=== PATIENT | male | born 1960 | race Caucasian/White ===

== ENCOUNTER 2019-12-23 07:59 | Outpatient (CLI) | payer OTHER, SELFPAY ==
--- NOTE | 2019-12-23 07:15 | US_ITS ---
WS: [id number] ULTRASOUND RENAL TECHNIQUE: Ultrasound examination of both kidneys. CLINICAL INFORMATION: INCOMPLETE BLADDER EMPTYING COMPARISON: None. FINDINGS: RIGHT: Right kidney is normal in size and appearance. Echogenicity: Normal. Hydronephrosis: None. Perinephric fluid: None. Right kidney measures: 9.4 cm x 5.3 cm x 4.7 cm. LEFT: Left kidney is normal in size and appearance. Echogenicity: Normal. Hydronephrosis: None. Perinephric fluid: None. Left kidney measures: 10.0 cm x 4.8 cm x 5.0 cm. Normal visualized aorta.Pre bladder volume 1141 cc post bladder volume 1087 cc US/US renal BI* [id number] IMPRESSION: 1. Incomplete bladder emptying with less than 100 cc total emptying detail abo ve above 2. Both kidneys are normal in appearance. No hydronephrosis.
== END 2019-12-23 08:00 | disposition home or self-care (01) ==
LOC: RAD 08:03
PROVIDERS: Family Provider Family Medicine; PCP Family Medicine; Visit Provider Urology
DX: R33.9 Retention of urine, unspecified (principal)
CPT/HCPCS: 76770

== ENCOUNTER → 2020-08-24 15:00 | Outpatient (BNVA) | payer OTHER, SELFPAY | PROVIDERS: Family Provider Family Medicine; PCP Family Medicine; Visit Provider Urology | DX: R33.9 Retention of urine, unspecified (principal); N35.919 Unspecified urethral stricture, male, unspecified site | CPT/HCPCS: 81001 ==

== ENCOUNTER 2020-11-09 09:42 | Outpatient (CLI) | payer OTHER, SELFPAY ==
--- NOTE | 2020-11-09 09:30 | US_ITS ---
WS: [id number] RENAL ULTRASOUND HISTORY: Stricture COMPARISON: 12/23/2019 TECHNIQUE: 2-D and color Doppler imaging of the kidney submitted. Right kidney: 10.2 cm x 3.9 cm x 4.5 cm. Normal echogenicity with no hydronephrosis or mass. Left kidney: 11.2 cm x 4.9 cm x 4.4 cm. Normal echogenicity with no hydronephrosis or mass. Aorta: Mildly ectatic aorta. Urinary Bladder: Markedly distended urinary bladder. Urinary bladder measures 16.1 x 9.7 x 13.1 cm. P atient was unable to void. Prostate gland is irregular measuring 4.0 x 4.2 x 4.1 cm. Central prostate gland calcification. US/US renal BI* [id number] IMPRESSION: 1. Normal size kidneys with no hydronephrosis. 2. Markedly enlarged urinary bladder. Patient was unable to urinate. 3. Irregular prostate gland with central calcification.
== END 2020-11-09 09:43 | disposition home or self-care (01) ==
LOC: US 09:52
PROVIDERS: PCP Family Medicine; Visit Provider Urology
DX: N35.919 Unspecified urethral stricture, male, unspecified site (principal); Q64.70 Unspecified congenital malformation of bladder and urethra
CPT/HCPCS: 76770; 81003

== ENCOUNTER → 2021-05-10 11:36 | Outpatient (BNVA) | payer OTHER, SELFPAY | PROVIDERS: PCP Family Medicine; Visit Provider Urology | DX: R33.9 Retention of urine, unspecified (principal); R82.81 Pyuria; N35.919 Unspecified urethral stricture, male, unspecified site; Z87.440 Personal history of urinary (tract) infections | CPT/HCPCS: 81003; 87086 ==

== ENCOUNTER 2021-11-15 09:14 | Outpatient (CLI) | payer OTHER, SELFPAY ==
--- NOTE | 2021-11-15 09:30 | US_ITS ---
WS: [id number] RENAL ULTRASOUND URINARY BLADDER ULTRASOUND HISTORY: urinary retention COMPARISON: 11/09/2020 TECHNIQUE: 2-D and color Doppler imaging of the kidney submitted. Right kidney: 9.9 cm x 5.2 cm x 5.2 cm. Normal kidney. No hydronephrosis or mass. Left kidney: 11.1 cm x 5.3 cm x 4.7 cm. Normal echogenicity with no hydronephrosis or mass. Aorta: Nonvisualized due to bowel gas. Urinary Bladder: Markedly enlarged urinary bladder. Urinary bladder measures 12 x 12 x 15 cm. No fill ing defects within the bladder. Patient was unable to void. Prostate gland is also enlarged and heter ogeneous. Prostate measures 4.7 x 3.6 x 4.1 cm. US/US renal BI with PV bladder IMPRESSION: 1. No hydronephrosis or renal mass. 2. Markedly enlarged urinary bladder, patient was unable to void. Consider pawan rogenic bladder. Similar to the prior study.
== END 2021-11-15 09:15 | disposition home or self-care (01) ==
LOC: RAD 09:16
PROVIDERS: PCP Family Medicine; Visit Provider Urology
DX: R33.9 Retention of urine, unspecified (principal); N32.89 Other specified disorders of bladder
CPT/HCPCS: 76770; 76857

== ENCOUNTER 2022-03-27 07:55 | Day surgery (SDC) | payer OTHER, SELFPAY ==
[2022-03-27] VITALS (8 sets, daily range): BP systolic 97–168; BP diastolic 67–102; PULSE 76–100; RESP 16–20; TEMP 36.2–36.8; O2SAT 94–100; BMI 20.3
--- NOTE | 2022-03-27 | SCC_ITS ---
Procedure done: 1. Cystoscopy, Damon catheter placed 1.9 seconds of fluoroscopic guidance, for a cumulative dose of 0.28 mGy, was provided to Dr. Vo by the radiology department. C-arm images of the abdomen were saved for the patient's permanent record. MTDD
--- NOTE | 2022-03-27 08:16 | W.ED.MALEGU ---
HPI - Male Genitourinary General: Chief complaint: Urogenital-Male Stated complaint: Can not urinate Time Seen by Provider: 03/27/22 08:00 Source: patient Mode of arrival: ambulatory Limitations: no limitations History of Present Illness: 61-year-old male with a history of urethral stricture parents emergency room has been unable to void for the last day. He has a history of urethral stricture usually sees Gilda is on nitrofurantoin and tamsulosin. Does not take any new or different medications no [id number] medications he has not missed any of his prescription medications. He had previously been advised by Dr. Vo that if he was unable to void at all to present to the emergency room that likely need a catheter placed. He tells me is not previously had catheter placement. He denies any dysuria urgency or frequency denies any hematuria prior to being unable to void. No flank pain he has some abdominal discomfort suprapubic. Onset (ago): day(s) (1) Duration: constant Location: abdomen (Suprapubic) Severity: moderate Quality: aching Relieving factors: none Exacerbating factors: none Associated symptoms: Reports urinary retention; Deny discharge, dysuria, fevers/chills, hematuria, nausea, rash, swelling, urinary incontinence or vomiting Review of Systems Const: Denies: fever(s), chills, body aches, change in appetite, fatigue or malaise ENMT: Denies: throat pain, ear or mastoid pain, nasal discharge or nasal congestion Card: Denies: chest pain, edema, dyspnea on exertion or orthopnea Resp: Denies: dyspnea, productive cough or non-productive cough GI: Reports: abdominal pain; Denies: nausea or vomiting : Reports: difficulty urinating, difficulty starting urination and oliguria; Denies: flank pain, dysuria, urinary frequency, urinary urgency, urinary hesitancy, urinary dribbling, urinary incontinence or hematuria Skin/Breast: Denies: rash or pruritus PFSH ED PFSH: Medical History History of recurrent UTI (urinary tract infection) Incomplete bladder emptying Urethral stricture in male Family History Mother , AT AGE 85 HEART DISEASE CAD (coronary artery disease) Father , at age 93 COVID Social History Smoking and tobacco status: current every day smoker Alcohol intake: never Adopted: No Caregiver/support person: No Lives independently: No Household members: spouse Marital status: Current occupational status: employed History of recent travel: No Physical Exam Const: COMMON NORMALS: no acute distress GENERAL APPEARANCE: cooperative and comfortable ORIENTATION/CONSCIOUSNESS: Yes awake, Yes oriented to person, Yes oriented to place and Yes oriented to time HENMT: COMMON NORMALS: normocephalic, atraumatic and hearing grossly normal bilaterally HEAD & SCALP: normocephalic and atraumatic Neck/C-Spine: COMMON NORMALS: no JVD Resp: COMMON NORMALS: normal respiratory effort, No retractions, No use of accessory muscles and clear to auscultation bilaterally AUSCULTATION: clear to auscultation bilaterally Cardio: COMMON NORMALS: no JVD, regular rate, regular rhythm and No murmurs present (Cardio) RATE: regular rate RHYTHM: regular rhythm GI: COMMON NORMALS: Soft to palpation and No hepatosplenomegaly present AUSCULTATION: Yes normoactive bowel sounds PALPATION: Yes Soft to palpation, Yes Tenderness to palpation present (GI) (Suprapubic, bladder palpable), No Guarding due to palpation present (GI) and Yes No hepatosplenomegaly present OTHER: Bladder palpable to the level of the umbilicus : COMMON NORMALS: Yes no CVA tenderness BLADDER/KIDNEY EXAM: Yes no CVA tenderness Back/Pelvis: COMMON NORMALS: no CVA tenderness Extremity: COMMON NORMALS: normal to inspection, capillary refill normal, no clubbing, cyanosis or edema, no calf tenderness and no pedal edema Neuro: SENSORIUM/ORIENTATION: Yes oriented to person, Yes oriented to place and Yes oriented to time Skin: COMMON NORMALS: no rashes or lesions noted GENERAL SKIN EXAM: no rashes or lesions noted Course Vital Signs: Vital signs: Vital Signs Temperature 97.7 F 03/27/22 08:02 Pulse Rate 100 03/27/22 08:02 Respiratory Rate 16 03/27/22 08:02 Blood Pressure 168/100 03/27/22 08:02 Pulse Oximetry 100 03/27/22 08:02 MDM - Male Medical Decision Making Discussed Dr. Vo. You will be coming to the ER to see the patient plans to take him to surgery for catheter placement. He anticipates difficulty because of the history of urethral stricture. He advises not to attempt catheter which I did agree with. I think it be impossible and quite painful for the patient. We will get a bladder scan is pending on those bladder is easily palpable patient is quite thin easily distinguishable on bedside exam. Discussed with the patient his last meal was at midnight last night he is advised not to eat or drink. Basic labs have been ordered. Medical Records I reviewed the patient's medical records. Lab Data I reviewed the patient's lab results. : 03/27/22 08:30 03/27/22 08:30 Laboratory Results WBC 10.9 10^3/uL (4.0-10.0) H 03/27/22 08:30 RBC 4.90 10^6/uL (4.1-5.3) 03/27/22 08:30 Hgb 14.2 g/dL (11.7-16.6) 03/27/22 08:30 Hct 42.8 % (42.0-52.0) 03/27/22 08:30 MCV 87.3 fl (80-94) 03/27/22 08:30 MCH 29.0 pg (28.0-34.0) 03/27/22 08:30 MCHC 33.2 g/dL (30.0-36.0) 03/27/22 08:30 RDW 12.7 % (12.1-15.1) 03/27/22 08:30 Plt Count 249 10^3/cmm (130-400) 03/27/22 08:30 MPV 9.8 fL (7.4-10.4) 03/27/22 08:30 Neut % (Auto) 75.5 % 03/27/22 08:30 Lymph % (Auto) 15.5 % 03/27/22 08:30 Coleman % (Auto) 7.6 % 03/27/22 08:30 Eos % (Auto) 0.5 % 03/27/22 08:30 Baso % (Auto) 0.3 % 03/27/22 08:30 Neut # (Auto) 8.20 10^3/uL (1.8-7.7) H 03/27/22 08:30 Lymph # (Auto) 1.7 10^3/uL (0.8-4.8) 03/27/22 08:30 Coleman # (Auto) 0.8 10^3/uL (0.2-0.9) 03/27/22 08:30 Eos # (Auto) 0.1 10^3/uL (0.0-0.8) 03/27/22 08:30 Baso # (Auto) 0.0 10^3/uL (0.0-0.1) 03/27/22 08:30 Nucleated RBC % (auto) 0 % 03/27/22 08:30 Nucleated RBCs # 0.0 /100WBC 03/27/22 08:30 Sodium 137 mmol/L (136-145) 03/27/22 08:30 Potassium 3.8 mmol/L (3.5-5.1) 03/27/22 08:30 Chloride 104 mmol/L (98-107) 03/27/22 08:30 Carbon Dioxide 23 mmol/L (22-29) 03/27/22 08:30 Anion Gap 13.8 (5-19) 03/27/22 08:30 BUN 15 mg/dL (8-23) 03/27/22 08:30 Creatinine 0.7 mg/dL (0.7-1.2) 03/27/22 08:30 GFR Calculation 115.0 mL/min (90-130) 03/27/22 08:30 Glucose 153 mg/dL (65-115) H 03/27/22 08:30 Calculated Osmolality 288 mOsm/kg (285-295) 03/27/22 08:30 Calcium 8.3 mg/dL (8.5-10.5) L 03/27/22 08:30 Discharge Plan Discharge Patient Disposition: Placed in Observation Clinical Impression: Acute retention of urine, Urethral stricture in male Condition: Stable Prescriptions: No Action tamsulosin 0.4 mg capsule 0.4 mg PO BEDTIME 0RF nitrofurantoin monohyd/m-cryst 100 mg capsule 100 mg PO BEDTIME 0RF Referrals: Ирина Mars MD [Primary Care Provider] - Patient Instructions: Opioid Safety Coding Level of Care Code ED Sealer Aircraft for g Fwd Exam Comprehensive
[2022-03-27 08:45] LABS: Basophils % 0.3 %; Eosinophils # 0.1 10^3/uL (0.0-0.8); Eosinophils % 0.5 %; Hematocrit 42.8 % (42.0-52.0); Hemoglobin 14.2 g/dL (11.7-16.6); Lymphocytes # 1.7 10^3/uL (0.8-4.8); Lymphocytes % 15.5 %; Mean Corpuscular HGB Conc 33.2 g/dL (30.0-36.0); Mean Corpuscular Volume 87.3 fl (80-94); Mean Platelet Volume 9.8 fL (7.4-10.4); Monocytes # 0.8 10^3/uL (0.2-0.9); Monocytes % 7.6 %; Neutrophils % 75.5 %; Nucleated Red Blood Cells % 0 %; Platelet Count 249 10^3/cmm (130-400); Red Cell Distribution Width 12.7 % (12.1-15.1); White Blood Count 10.9 10^3/uL (4.0-10.0)
[2022-03-27 09:07] LABS: Anion Gap 13.8 (5-19); Blood Urea Nitrogen 15 mg/dL (8-23); Calcium 8.3 mg/dL (8.5-10.5); Carbon Dioxide 23 mmol/L (22-29); Chloride 104 mmol/L (98-107); Glucose 153 mg/dL (65-115); Osmolality Calculated 288 mOsm/kg (285-295); Potassium 3.8 mmol/L (3.5-5.1); Sodium 137 mmol/L (136-145)
--- NOTE | 2022-03-27 09:17 | SC_ITS ---
WS: [id number] C-ARM RADIOGRAPHS PELVIS; 2 IMAGES HISTORY: Urinary retention, urethral stricture COMPARISON: None available. Limited evaluation of the pelvis. Imaging was performed during a urological procedure performed by Dr Heike Vo. SC/C-arm FL for Urology IMPRESSION: Intraoperative imaging for procedure performed by Dr. Vo.
--- NOTE | 2022-03-27 09:19 | PM.OPSURHP ---
Providers/Chief Complaint Admitting Physician: Gilda Referring Physican: Steve Primary Care Provider: Ирина Mars MD Chief Complaint: Can not urinate Urinary retention likely secondary to urethral stricture History of Present Illness Barrera Quezada is a 61 year old male who I have followed for several years now for dysfunctional voiding consistent with urethral stricture. To date he is declined on many occasions any further work-up for his grossly abnormal voiding. He has had persistently increasing PVRs with last measuring greater than 1000 cc. Thankfully serial imaging of his kidneys has shown no evidence of severe hydronephrosis or progressive deterioration in renal function as measured by BMP. He had been counseled that eventually he was going to go in retention and would become an emergency circumstance. Over the last couple days he has had progressive strangury of and as of last night was only able to push out a few drops of what look like purulent urine. No fever or chills. Does have some lower abdominal pain as expected. Bladder is palpable to above the umbilicus. No acute abdomen. Plan was to take him urgently to the operating room from the ED for cystoscopy, urethral dilation, possible VIU, possible open suprapubic tube if bladder inaccessible in a retrograde fashion Informed consent was obtained for the procedure after detailed explanation of benefits risk potential complications and alternatives. Also significantly emphasized the importance of stricture patency maintenance as a long-term management of urethral stricture pending outcomes in the OR today. We have talked on multiple occasions that he likely will have severe bladder dysfunction following opening of the urethra. He may well have to perform SCIC has long-term bladder management due to chronic neglect of a distended bladder. He expressed understanding. Review of Systems Const: Denies: fever(s) or chills Eyes: Denies: eye discharge Card: Denies: chest pain or palpitations Resp: Denies: dyspnea or productive cough GI: Reports: abdominal pain; Denies: nausea or vomiting : Reports: difficulty urinating, urinary dribbling and difficulty starting urination Musc: Denies: joint redness Skin/Breast: Denies: rash Psych: Denies: anxiety or depression Jose Francisco/Lymph: Denies: easy bruising All/Imm: Denies: acute wheezing Medications/Allergies Home Medications Medication Instructions Recorded Confirmed Last Taken Type tamsulosin 0.4 mg capsule 0.4 mg PO BEDTIME 12/23/19 03/27/22 03/26/22 History nitrofurantoin 100 mg PO BEDTIME 03/27/22 03/27/22 03/26/22 History monohydrate/macrocrystals 100 mg capsule Allergies Allergy/AdvReac Type Severity Reaction Status Date / Time No Known Allergies Allergy Verified 03/27/22 09:00 PFSH PFSH: Medical History History of recurrent UTI (urinary tract infection) Incomplete bladder emptying Urethral stricture in male Urinary retention Family History Mother , AT AGE 85 HEART DISEASE CAD (coronary artery disease) Father , at age 93 COVID Social History Smoking and tobacco status: current every day smoker Alcohol intake: never Adopted: No Caregiver/support person: No Lives independently: No Household members: spouse Marital status: Current occupational status: employed History of recent travel: No Vital Signs Vitals Signs: Last Vital Signs Temp 97.7 F 03/27/22 08:02 Pulse 100 03/27/22 08:02 Resp 16 03/27/22 08:02 BP 168/100 03/27/22 08:02 Pulse Ox 100 03/27/22 08:02 Weight: Weight last 48 hrs Weight 150 lb Physical Exam Const: GENERAL APPEARANCE: well kempt and well developed ORIENTATION/CONSCIOUSNESS: not confused HENMT: HEAD & SCALP: normocephalic and atraumatic Eye: COMMON NORMALS: conjunctivae normal and no scleral icterus CONJUNCTIVA: Yes conjunctivae normal Neck/C-Spine: COMMON NORMALS: full ROM GENERAL: Yes normal visual inspection Resp: COMMON NORMALS: normal respiratory effort EFFORT & INSPECTION: No labored and No Actively coughing GI: OTHER: Palpable mass consistent with bladder extending well above the umbilicus. No other gross abnormality. : OTHER: Normal genitourinary exam externally. Bladder is severely distended up to the level of the umbilicus. Back/Pelvis: OTHER: No CVA tenderness Extremity: COMMON NORMALS: no clubbing, cyanosis or edema OTHER: Normal Gait Neuro: COMMON NORMALS: no focal motor deficits SENSORIUM/ORIENTATION: Yes alert Psych: COMMON NORMALS: mental status grossly normal APPEARANCE: Yes grossly normal and Yes well kempt ATTITUDE: Yes calm and Yes engaged Skin: COMMON NORMALS: no rashes or lesions noted and no jaundice Data : 03/27/22 08:30 03/27/22 08:30 A&P Assessment and plan (1) Urethral stricture in male: Status: Acute (2) Urinary retention: Status: Acute (3) History of recurrent UTI (urinary tract infection): Status: Acute (4) Pyuria: Status: Acute Plan 1. Urgent operative evaluation with cystoscopy possible dilation possible VIU. If on able to access the bladder in retrograde fashion will require suprapubic tube placement. Plan open most likely. 2. Informed consent was obtained. We will take to the operating room when time is available in the schedule Coding Level of Care Code Acute [employer]imator [employer] Making for Debi Browning Diagnoses Urethral stricture in male N35.919 Urinary retention R33.9 History of recurrent UTI (urinary tract infection) Z87.440 Pyuria R82.81
[2022-03-27] MEDS: levofloxacin-dextrose 5 % 750 MG/150 ML PREMIX 100 MG IV (09:25)
--- NOTE | 2022-03-27 10:37 | ANES.PREANE2 ---
Pre-Anesthetic Assessment Height/Weight: Height 1.83 m Weight 68.039 kg Temp Pulse Resp BP Pulse Ox 98.3 F 86 18 137/94 97 03/27/22 09:37 03/27/22 09:37 03/27/22 09:37 03/27/22 09:37 03/27/22 09:37 Preop Diagnosis: Urinary retention secondary to urethral stricture Operation Date: 03/27/22 11:45 Proposed Procedures p Cystoscopy(Not Applicable) - Armin Vo MD s Urethral Dilation(Not Applicable) - Armin Vo MD s Internal Urethrotomy(Not Applicable) - Armin Vo MD Familial anesthetic complications: None Was Beta Destiny taken within 24 hours: N/A Was Clonidine taken within 24 hours: N/A Last intake: Intake Last Liquid Date 03/26/22 Last Liquid Time 23:00 Last Solid Date 03/26/22 Last Solid Time 19:00 Social Tobacco Exam alert, oriented x 3, clear to auscultation bilaterally and regular rate & rhythm Airway Mallampati: Class II Dentition: other (missing) Pulmonary None reported CV/HEM None reported None reported Hepatic None reported GI None reported Metabolic None reported Musc/skel None reported Neuropsych None reported Anesthetic Plan ASA status: 2 Anesthesia: General Medications/Allergies Home Medications Medication Instructions Recorded Confirmed Last Taken Type tamsulosin 0.4 mg capsule 0.4 mg PO BEDTIME 12/23/19 03/27/22 03/26/22 History nitrofurantoin 100 mg PO BEDTIME 03/27/22 03/27/22 03/26/22 History monohydrate/macrocrystals 100 mg capsule Allergies Allergy/AdvReac Type Severity Reaction Status Date / Time No Known Allergies Allergy Verified 03/27/22 09:00 [facility] Anesthesia Medical History History of recurrent UTI (urinary tract infection) Incomplete bladder emptying Urethral stricture in male Urinary retention Family History Mother , AT AGE 85 HEART DISEASE CAD (coronary artery disease) Father , at age 93 COVID Social History Smoking and tobacco status: current every day smoker Alcohol intake: never Adopted: No Caregiver/support person: No Lives independently: No Household members: spouse Marital status: Current occupational status: employed History of recent travel: No Data Anesthesia : 03/27/22 08:30 03/27/22 08:30 Short CBC 03/27/22 Range/Units 08:30 WBC 10.9 H (4.0-10.0) 10^3/uL Hgb 14.2 (11.7-16.6) g/dL Hct 42.8 (42.0-52.0) % MCV 87.3 (80-94) fl Plt Count 249 (130-400) 10^3/cmm Neut % (Auto) 75.5 % Neut # (Auto) 8.20 H (1.8-7.7) 10^3/uL BMP 03/27/22 08:30 Sodium 137 Potassium 3.8 Chloride 104 Carbon Dioxide 23 BUN 15 Creatinine 0.7 Glucose 153 H Calcium 8.3 L Cardiac Studies: No Data to Display
[2022-03-27] MEDS: sodium chloride 0.9% 1,000 ML 30 ML IV (10:39)
--- NOTE | 2022-03-27 11:40 | ECG_ITS ---
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 Measurements Intervals Rose Rate: 90 P: 35 WY: 161 QRS: 11 QRSD: 83 T: 70 QT: 359 QTc: 441 Interpretive Statements SINUS RHYTHM No previous ECG available for comparison Electronically Signed On 03-27-2022 20:50:06 CDT by Kaiden Gillis M.D. [email or web address]
--- NOTE | 2022-03-27 12:16 | P.OP_ITS ---
Operative Report Date of procedure: March 27, 2022 Pre-op diagnosis: Urinary retention secondary to urethral stricture Post-op diagnosis: Urinary retention, no evidence of urethral stricture Procedure done: 1. Cystoscopy, Damon catheter placed Surgeon: Gilda Estimated blood loss: Minimal Complications: None Findings: No evidence of stricture. Severe distention of the bladder with trabeculation and cellule formation Brief History: Mr. Quezada is a 61-year-old white male with longstanding voiding dysfunction clinically consistent with severe urethral stricture disease. Has a long history of declining any treatment or work-up for further clarification. Over the years his bladder postvoid residual increased substantially but thankfully his upper urinary tracts were only mildly affected. He was warned that likely he would develop urinary retention at some point which may make bridging the stricture from retrograde perspective and possible, lead to complete bladder defunctionalization from chronic distention, and possibly end up with long-term suprapubic tube. Despite repetitive warnings from me and encouragement by his he continues to decline treatment until he presented in urinary retention today to the emergency department. Given the prior findings it was recommended that he forego attempted catheter placement and instead be evaluated under anesthesia with hopes of obtaining retrograde access via cystoscopy urethral dilation, possible visual internal urethrotomy and if unsuccessful from retrograde approach then suprapubic tube placement. Bladder was quite distended New information: His stated after the procedure that he has a history of a back fracture in his low back years ago. Potentially could be a source of neurogenic dysfunction. Procedure: After urgent evaluation examination and obtaining of informed consent he was taken to the operating suite on 03/27/2022 where general anesthesia was administered without difficulty after appropriate timeout was performed, SCDs confirmed to be functioning, preoperative antibiotics administered, beta-alejandro protocol confirmed. Prepped and draped in usual sterile fashion in dorsolithotomy position paying careful attention to avoiding pressure points. The lower abdomen was prepped into the field in preparation for suprapubic tube if necessary Fluoroscopy was set up and confirmed to be functioning. 21 [place] cystoscope with 30 degree lens was introduced into the urethra meatus which was somewhat tight and therefore was switched to 17 [place] sheath. The scope was then passed all the way into the bladder. There was no evidence of urethral stricture which was quite a shock. He did have a high bladder neck but I could not identify any other significant prostatic abnormality such as post urethral valves etc. The bladder was very distended with severe chronic trabeculation and cellule formation had a lot of purulent material and in fectious sludge on the posterior wall. The bladder was drained and the sludge was evacuated from the bladder. No other gross abnormality could be identified other than chronic bladder obstructive changes from chronic distention. The 17 [place] scope was exchanged for a 21 [place] scope which was passed. No active bleeding was noted. Bladder was drained with a 20 [place] catheter. He tolerated procedure well without complications and was awakened in the operating room and returned to the recovery room in stable condition. PLANS: 1. Anticipate discharge with Damon catheter in place this afternoon 2. Follow-up in about a week for voiding trial and SCIC instruction
--- NOTE | 2022-03-27 18:55 | ANE.PACU2 ---
Inpatient post-anesthesia follow up: Airway intact: Yes Vital signs: Temperature 97.4 F Pulse Rate 83 Respiratory Rate 18 Blood Pressure 97/67 Pulse Oximetry 97 Oxygen Delivery Me thod Room Air Oxygen Flow Rate Fraction of Inspir ed Oxygen Hydration adequate: Yes Nausea and vomiting: No Pain level: 1 Mental status: Baseline
== END 2022-03-27 14:00 | disposition home or self-care (01) ==
LOC: ER 09:14 → OPS 09:16
PROVIDERS: Emergency Provider Family Medicine; PCP Family Medicine; Visit Provider Urology
PROC: 0TJB8ZZ Inspection of Bladder, Via Natural or Artificial Opening Endoscopic (ICD-10-PCS; CPT 52000; principal; 2022-03-27 11:45)
PROC: (CPT 51702; 2022-03-27 11:45)
PROC: (CPT 51702; 2022-03-27 11:45)
DX: R33.9 Retention of urine, unspecified (principal); N35.919 Unspecified urethral stricture, male, unspecified site; R82.81 Pyuria; F17.210 Nicotine dependence, cigarettes, uncomplicated; Z82.49 Family history of ischemic heart disease and other diseases of the circulatory system
CPT/HCPCS: 51702; 52000; 76000; 80048; 85025; 93005; J1956; J2405; J2704; J3010; J7030

== ENCOUNTER 2022-05-01 13:02 | Outpatient (CLI) | payer OTHER, SELFPAY ==
--- NOTE | 2022-05-01 13:00 | US_ITS ---
WS: [id number] RENAL ULTRASOUND HISTORY: Neurogenic Bladder COMPARISON: 11/15/2021 TECHNIQUE: 2-D and color Doppler imaging of the kidney submitted. Right kidney: 8.8 cm x 5.8 cm x 4.0 cm. Low normal size kidney. Focal cortical thinning in the mid kidney is very minimal. Also noted on the prior study. No mass or hydronephrosis. Left kidney: 10.4 cm x 5.2 cm x 5.1 cm. Normal echogenicity with no hydronephrosis or mass. Aorta: Normal. Urinary Bladder: Bladder is abnormally distended with diffusely thickened bladder wall and undulation s of the bladder. Prostate gland is mildly prominent. US/US renal BI* [id number] IMPRESSION: 1. Low normal size RIGHT kidney. Similar to prior studies. 2. No hydronephrosis or obstruction. 3. Diffuse bladder wall thickening and only distended bladder consistent with a history of a neurogenic bladder.
== END 2022-05-01 13:03 | disposition home or self-care (01) ==
LOC: RAD 13:05
PROVIDERS: PCP Family Medicine; Visit Provider Urology
DX: N31.9 Neuromuscular dysfunction of bladder, unspecified (principal)
CPT/HCPCS: 76770